=== PATIENT | female | born 1945 | race Hispanic/Latino ===

== ENCOUNTER → 2018-08-27 | Outpatient (CLI) | payer OTHER, MEDICARE | END | disposition home or self-care (01) | LOC: OIH 10:23 | PROVIDERS: ATTEND Family Medicine | DX: M47.894 Other spondylosis, thoracic region (principal) | CPT/HCPCS: 72070 ==

== ENCOUNTER → 2018-09-21 | Outpatient (CLI) | payer OTHER, MEDICARE | END | disposition home or self-care (01) | LOC: RAH 11:42 | PROVIDERS: ATTEND Family Medicine | DX: Z12.31 Encounter for screening mammogram for malignant neoplasm of breast (principal) | CPT/HCPCS: 77067 ==

== ENCOUNTER → 2020-10-10 | Outpatient (CLI) | payer OTHER, MEDICARE | END | disposition home or self-care (01) | LOC: OIH 13:05 | PROVIDERS: ATTEND Family Medicine | DX: R07.82 Intercostal pain (principal); M25.511 Pain in right shoulder | CPT/HCPCS: 71100; 73030 ==

== ENCOUNTER → 2020-10-11 | Outpatient (CLI) | payer OTHER, MEDICARE | END | disposition home or self-care (01) | LOC: RAH 08:42 | PROVIDERS: ATTEND Family Medicine | DX: Z12.31 Encounter for screening mammogram for malignant neoplasm of breast (principal); K76.0 Fatty (change of) liver, not elsewhere classified | CPT/HCPCS: 76700; 77067 ==

== ENCOUNTER 2022-11-15 09:44 | Emergency (ER) | payer OTHER, MEDICARE ==
[~2022-11-15] VITALS: Ht 154.9 cm; Wt 54.4 kg
[2022-11-15] MEDS ORDERED: DIPH,PERTUSS(ACELL),TET VAC/PF 0.5 ML VIAL IM ONE (10:00)
[2022-11-15] MEDS ORDERED: ONDANSETRON ODT 4MG TAB SL ONE (10:00)
[2022-11-15] MEDS ORDERED: MORPHINE 4 MG SYG IM ONE (10:00)
[2022-11-15] MEDS ORDERED: CYCL10TA16 PO (12:26)
[2022-11-15] MEDS ORDERED: OXYC-38 PO (12:26)
[2022-11-15] MEDS ORDERED: NAPR-1180 PO (12:26)
[2022-11-15 12:30] VITALS: BP 134/48
[2022-11-15] MEDS ORDERED: OXYCODONE/ACETAMIN 5/325MG TAB PO ONE (13:00)
== END 2022-11-15 13:10 | disposition home or self-care (01) ==
LOC: EDH 09:44
DX: S20.211A Contusion of right front wall of thorax, initial encounter (principal); S50.811A Abrasion of right forearm, initial encounter; E11.9 Type 2 diabetes mellitus without complications; Y99.8 Other external cause status; E78.00 Pure hypercholesterolemia, unspecified; I10 Essential (primary) hypertension; W06.XXXA Fall from bed, initial encounter; Y93.89 Activity, other specified; Y92.89 Other specified places as the place of occurrence of the external cause
CPT/HCPCS: 99285; 90715; 71101; 96372; 90471; J2270

== ENCOUNTER 2024-09-16 23:28 | Emergency (ER) | payer OTHER, MEDICARE ==
[~2024-09-16 23:28] MED LIST: CYCL10TA16 PO; NAPR-1180 PO; OXYC-38 PO
--- NOTE | 2024-09-17 00:06 | NUR ---
PATIENT SENT FROM [facility] DUE TO ABNORMAL LABS LOW H/H
[2024-09-17 00:27] LABS: BASOPHILS # (AUTO) 0.02 K/uL (0.00-0.20); BASOPHILS % (AUTO) 0.3 % (0.0-5.0); EOSINOPHILS # (AUTO) 0.19 K/uL (0.00-0.70); EOSINOPHILS % (AUTO) 2.9 % (0.0-8.0); HEMATOCRIT 22.3 % (36-48); IMMATURE GRANULOCYTE ABSOLUTE 0.04 K/uL (0-1); LYMPHOCYTES # (AUTO) 1.5 K/uL (1.0-4.8); LYMPHOCYTES % (AUTO) 22.2 % (21.0-51.0); MEAN CORPUSCULAR HGB CONC 33.2 g/dL (32.0-36.0); MEAN CORPUSCULAR VOLUME 90.3 fL (79-99); MONOCYTES # (AUTO) 0.5 K/uL (0.1-1.0); MONOCYTES % (AUTO) 7.1 % (3.0-13.0); NEUTROPHILS # (AUTO) 4.5 K/uL (1.8-7.7); NEUTROPHILS % (AUTO) 66.9 % (40.0-77.0); PLATELET COUNT (AUTO) 226 K/uL (130-400); RED BLOOD CELL COUNT(AUTO) 2.47 MIL/uL (4.00-5.50); RED CELL DISTRIBUTION WIDTH 14.1 % (11.0-15.5); WHITE BLOOD COUNT (AUTO) 6.7 K/uL (4.8-10.8)
[2024-09-17 00:38] LABS: CREATININE 2.1 mg/dL (0.5-1.0); POTASSIUM 5.4 mmol/L (3.5-5.1)
[2024-09-17 00:39] LABS: INR 1.06 (0.85-1.15); PROTHROMBIN TIME 11.4 SEC (9.6-11.6)
[2024-09-17 00:40] LABS: PARTIAL THROMBOPLASTIN TIME 32.8 SEC (26.3-35.5)
--- NOTE | 2024-09-17 00:41 | ERN ---
ED Note History of Present Illness Stated Complaint: ABNORMAL LABS Chief Complaint: Abnormal Labs Time Seen by MD: 23:53 Time Seen by Midlevel: 23:53 Dictation: The patient is a 79-year-old female with a history of type 2 diabetes, anemia, muscle weakness, kidney failure who presents to the emergency department after being sent from [facility] due to abnormal hemoglobin. Patient's hemoglobin at facility was 7.6. Patient does have a history of anemia last hemoglobin in September 12 was 7.5. Patient at this time denies any complaints. Patient denies any abdominal pain, nausea or vomiting, chest pain or shortness of breath, dizziness Nursing staff at [facility] reported no black stools, no nausea or vomiting. Allergies: Coded Allergies: No Known Drug Allergies (Unverified Allergy, Unknown, 11/15/22) Home Meds Active Scripts Naproxen (Naprosyn) 500 Mg Tablet, 500 MG PO BIDPC for 10 Days, #20 TAB 0 Refills Prov:FRANKY BANEGAS MD 11/15/22 Cyclobenzaprine HCl (Flexeril) 10 Mg Tab, 0.5 TAB PO TID for muscle spasm, #16 TAB 0 Refills Prov:FRANKY BANEGAS MD 11/15/22 Oxycodone HCl/Acetaminophen (Percocet 5-325 mg Tablet) 1 Each Tablet, 1 EACH PO Q6H for pain, #12 TAB 0 Refills Prov:FRANKY BANEGAS MD 11/15/22 Past Medical History Past Medical History: Anemia, Diabetes-Type II, UTI Additional Past Medical Hx: GASTRITIS, Surgical History: None Social History: Negative, Lives with family RN Note Reviewed/Agreed w/PFSH: Yes Review of System Dictation Constitutional: Negative for fever,chills, and weight loss Eyes: Negative for injury, pain,redness, and discharge ENT: Negative for injury,pain or swelling Cardiovascular: Negative for chest pain, palpitations, and edema Respiratory: Negative for shortness of breath, cough, and wheezing, Abdomen/GI: Negative for abdominal pain, nausea, vomiting, diarrhea, and constipation Back: Negative for injury and pain : Negative for injury, bleeding and discharge MS/Extremity: Negative for injury and deformity Skin: Negative for rash, and discoloration Neuro: Negative for headache, weakness, numbness, tingling, and seizure Psych: Negative for suicide ideation, homicidal ideation, and hallucinations Initial Vital Sign VS Vital Signs Date Time Temp Pulse Resp B/P (MAP) Pulse Ox O2 Delivery O2 Flow Rate FiO2 09/16/24 23:33 84 16 186/74 97 Room Air 09/17/24 02:55 0 21 Physical Exam Dictation Vital Signs reviewed General Appearance: Alert, oriented x 1, no acute distress, well developed, nourished. Head and Face: non-traumatic. Eyes: PERRL, pink conjunctivas, eyelid no trauma, anterior chamber with arcus senilis. Ears: Pinnas intact and no signs of trauma or erythema ear canals clear and no discharge TM no erythema Nose: No discharge, no bleeding. Oropharynx: Mouth normal, tongue pink. pharynx clear,no erythema, tonsils no exudates, no abscesses noted, mucous membrane moist Neck: Supple, non-tender, no thyromegaly, no masses, no JVD, no bruits Breast:Deferred Chest:No tenderness, no crepitus, no paradoxical movement, no retractions Lungs:Clear, well-ventilated, symmetric, no rales, no wheezing, no rhonchi, no stridor, good breath sounds bilaterally Heart: Regular rate, regular rhythm, no murmur, no gallops Vascular: no peripheral edema, Abdomen: Soft, positive bowel sounds, nondistended, no guarding, nontender, no rebound, no masses no hepatomegaly, no splenomegaly, no Acosta's sign, no hernias. Rectal: Deferred Genital: Deferred Neurological: Normal speech, motor function intact, sensory function intact Musculoskeletal: Neck nontender, full range of motion, back nontender, full range of motion, Extremities: nontender, full range of motion Skin: Color pink, dry, no turgor, no rash, no lacerations, no abrasions, no contusions. Lymphatic: Deferred Results (Laboratory/Radiology) Laboratory/Radiology Laboratory Tests Test 09/17/24 00:20 09/17/24 02:37 White Blood Count 6.7 K/uL (4.8-10.8) Red Blood Count 2.47 MIL/uL (4.00-5.50) L Hemoglobin 7.4 g/dL (12.0-16.0) L Hematocrit 22.3 % (36-48) L Mean Corpuscular Volume 90.3 fL (79-99) Mean Corpuscular Hemoglobin 30.0 pg (27.0-33.0) Mean Corpuscular Hemoglobin Concent 33.2 g/dL (32.0-36.0) Red Cell Distribution Width 14.1 % (11.0-15.5) Platelet Count 226 K/uL (130-400) Mean Platelet Volume 9.3 fL (7.5-10.5) Immature Granulocyte % (Auto) 0.6 % (0-1) Neutrophils (%) (Auto) 66.9 % (40.0-77.0) Lymphocytes (%) (Auto) 22.2 % (21.0-51.0) Monocytes (%) (Auto) 7.1 % (3.0-13.0) Eosinophils (%) (Auto) 2.9 % (0.0-8.0) Basophils (%) (Auto) 0.3 % (0.0-5.0) Neutrophils # (Auto) 4.5 K/uL (1.8-7.7) Lymphocytes # (Auto) 1.5 K/uL (1.0-4.8) Monocytes # (Auto) 0.5 K/uL (0.1-1.0) Eosinophils # (Auto) 0.19 K/uL (0.00-0.70) Basophils # (Auto) 0.02 K/uL (0.00-0.20) Absolute Immature Granulocyte (auto 0.04 K/uL (0-1) Nucleated Red Blood Cells 0.0 % (0.0-0.19) Prothrombin Time 11.4 SEC (9.6-11.6) Prothromb Time International Ratio 1.06 (0.85-1.15) Activated Partial Thromboplast Time 32.8 SEC (26.3-35.5) Sodium Level 136 mmol/L (136-145) Potassium Level 5.4 mmol/L (3.5-5.1) H 3.8 mmol/L (3.5-5.1) Chloride Level 102 mmol/L (101-111) Carbon Dioxide Level 25 mmol/L (21-32) Blood Urea Nitrogen 49 mg/dL (7-18) H Creatinine 2.1 mg/dL (0.5-1.0) H Glomerular Filtration Rate Calc 24 mL/min (>90) Random Glucose 118 mg/dL (70-105) H Total Calcium 8.5 mg/dL (8.5-10.1) Labs Reviewed?: Yes ED Course ED Course Orders Procedure Category Date Status Time Cbc With Differential LAB 09/17/24 Complete 00:01 Basic Metabolic Panel LAB 09/17/24 Complete 00:01 Pt And Ptt LAB 09/17/24 Complete 00:03 12 Lead Ekg Tracing- EKG 09/17/24 Logged Technical 00:54 Dextrose 50%-Water PHA 09/17/24 Complete (Dextrose 50%-Water) 01:00 Insulin Regular, PHA 09/17/24 Complete Human 3ml (Humulin R 01:00 Albuterol 0.083% PHA 09/17/24 In Process 2.5mg/3ml (Proventil 01:00 Na Zircon PHA 09/17/24 Complete Cyclosil-Lokelma 10g 01:00 0.9%Nacl 1000ml (Ns PHA 09/17/24 In Process 1000ml) 01:00 Dextrose 50%-Water PHA 09/17/24 Complete (D50w) 01:30 Potassium LAB 09/17/24 Complete 02:29 Current Medications Medications (Trade) Dose Ordered Sig/Jessica Route PRN Reason Start Time Stop Time Status Last Admin Dose Admin Albuterol Sulfate (Proventil 0.083% 2.5mg/3ml) 10 mg ONCE IH 09/17/24 01:00 10/17/24 00:59 09/17/24 01:18 Dextrose (D50w) 50 ml ONCE ONCE IV 09/17/24 01:30 09/17/24 01:31 DC 09/17/24 01:10 Dextrose (Dextrose 50%-Water) 25 gm ONCE ONCE IV 09/17/24 01:00 09/17/24 01:01 DC Insulin Human Regular (humuLIN R 100 UNIT/ML 3ML) 5 unit ONCE ONCE IV 09/17/24 01:00 09/17/24 01:01 DC 09/17/24 01:18 Sodium Chloride 1,000 ml @ 100 mls/hr Q10H IV 09/17/24 01:00 10/17/24 00:59 09/17/24 01:10 Sodium Zirconium Cyclosilicate (Lokelma 10gm Powder) 10 gm ONCE ONCE PO 09/17/24 01:00 09/17/24 01:01 DC 09/17/24 01:10 Vital Signs Date Time Temp Pulse Resp B/P (MAP) Pulse Ox O2 Delivery O2 Flow Rate FiO2 09/17/24 02:55 100 19 106/63 100 Room Air* 0 21 09/17/24 01:19 78 17 09/16/24 23:33 84 16 186/74 97 Room Air Medical Decision Making MDM The patient is a 79-year-old female with a history of type 2 diabetes, anemia, muscle weakness, kidney failure who presents to the emergency department after being sent from [facility] due to abnormal hemoglobin. Patient's hemoglobin at facility was 7.6. Patient does have a history of anemia last hemoglobin in September 12 was 7.5. Patient at this time denies any complaints. Patient denies any abdominal pain, nausea or vomiting, chest pain or shortness of breath, dizziness Nursing staff at [facility] reported no black stools, no nausea or vomiting. CBC showed no leukocytosis, mild normocytic anemia, not significantly changed from previous hemoglobin. Patient with no active bleeding, history of kidney disease. Potassium slightly elevated 5.4 patient received hypokalemia treatment and improved to 3.8. Patient continues in no distress, asymptomatic. We will be discharged back to [facility]. Case discussed with , No need for transfusion patient not symptomatic, no active bleeding. Stable vital signs. Differential diagnosis: Anemia, electrolyte imbalance, renal failure, dehydration Need for hospitalization: Patient does not meet criteria for hospitalization. There are no social concerns with this patient. DX & DISP Disposition: Discharge Departure Impression: Primary Impression: Anemia Additional Impressions: CKD (chronic kidney disease), Hyperkalemia Condition: Stable Additional Instructions: FOLLOW-UP WITH PRIMARY CARE PROVIDER IN 1 TO 2 DAYS. TAKE MEDICATIONS DIRECTED HERE IN THE EMERGENCY ROOM. OKAY TO CONTINUE HOME MEDICATIONS UNLESS OTHERWISE DISCUSSED DURING YOUR VISIT IN THE EMERGENCY ROOM TODAY. RETURN TO YOUR NEAREST EMERGENCY ROOM IF SYMPTOMS WORSEN OR IF THERE IS NO IMPROVEMENT. CALL 911 IF YOU NEED IMMEDIATE ASSISTANCE. TAKE TYLENOL [id number] NEEDED AND IF NO CONTRAINDICATIONS ARE PRESENT. INCREASE ORAL HYDRATION. A WOUND CULTURE OR URINE CULTURE WAS ORDERED HERE IN THE EMERGENCY ROOM DEPARTMENT PLEASE FOLLOW-UP WITH PRIMARY CARE PROVIDER AND ADVISE THEM TO GET REPEAT PORTS FROM OUR FACILITY. IF YOU HAD ANY LIV WRAP/SPLINTS THAT WERE APPLIED HERE, PLEASE DO NOT REMOVE THEM UNTIL YOU SEE YOUR PRIMARY CARE OR SPECIALTY. Referrals: DIDIER QUIGLEY MD (PCP) Time of Disposition: 02:59 I have reviewed the case, and I agree with, Diagnosis and Plan PANCHITO SALGUERO LINE O SCRIBE OPERATOR Sep 17, 2024 00:41
[2024-09-17] MEDS: DEXTROSE 50%-WATER 50 ML DISP.SYRIN IV ONE (01:10)
[2024-09-17] MEDS: 0.9%NACL 1000ML 1,000 ML IV SCH (01:10)
[2024-09-17] MEDS: NA ZIRCON CYCLOSIL(LOKELMA 10GM) PO ONE (01:10)
[2024-09-17] MEDS: DEXTROSE 50%-WATER 25 GM/50 ML VIAL IV ONE (01:11)
[2024-09-17] MEDS: ALBUTEROL 0.083% 2.5 MG/3 ML INH IH SCH (01:18)
[2024-09-17] MEDS: INSULIN humuLIN R 100 UNIT/ML 3ML IV ONE (01:18)
[2024-09-17 01:19] VITALS: PULSE 78; RESP 17
[2024-09-17 02:55] VITALS: BP 106/63; PULSE 100; RESP 19; O2SAT 100
--- NOTE | 2024-09-17 03:27 | NUR ---
ATTEMPTS TO CALL REPORT TO NURSING STAFF UNSUCCESSFUL, NO ANSWER AT [facility]
--- NOTE | 2024-09-17 03:27 | NUR ---
EMS CALLED FOR PATIENT TRANSPORT TO [facility]
--- NOTE | 2024-09-17 06:46 | EKG ---
[facility] Test Date: 2024-09-17 Test Time: 02:45:07 Pat Name: DARRYL STOREY Department: ED Room: Gender: F Milling Supervisor: [id number] : [phone] Requested By: PANCHITO SALGUERO Order Number: [id number] Reading MD: Nam Cox Measurements Intervals [place] Rate: 117 P: 26 NC: 157 QRS: -30 QRSD: 71 T: 34 QT: 330 QTc: 461 Interpretive Statements Sinus tachycardia Ventricular premature complex Left axis deviation No previous ECG available for comparison Electronically Signed On 09-17-2024 16:15:34 BOOKMOBILE LIBRARIAN by Nam Cox Please click the below link to view image of tracing.
== END 2024-09-17 03:58 ==
LOC: EDH 23:28
DX: E11.22 Type 2 diabetes mellitus with diabetic chronic kidney disease (principal); D63.1 Anemia in chronic kidney disease; N18.9 Chronic kidney disease, unspecified; E87.5 Hyperkalemia; Z79.899 Other long term (current) drug therapy
CPT/HCPCS: 99284; 80048; 85025; 85610; 85730; 82948; 36415; 84132; 96374; 96375; 93005; 94640; J1815; J7030; J7070

== ENCOUNTER 2024-12-20 15:02 | Emergency (ER) | payer OTHER, MEDICARE ==
[~2024-12-20] VITALS: Ht 157.5 cm; Wt 68.9 kg
[2024-12-20] MEDS ORDERED: AMOX-426 PO (15:36)
--- NOTE | 2024-12-20 15:37 | ERN ---
ED Note History of Present Illness Stated Complaint: RIGHT EAR DISCHARGE Chief Complaint: Earache Time Seen by MD: 15:06 Time Seen by Midlevel: 15:06 Dictation: The Patient is a 79-year-old female with a history of diabetes who presents to the emergency department with complaints of right ear pain, drainage onset two weeks ago. Family member denies any fevers. No other complaints reported. Allergies: Coded Allergies: No Known Drug Allergies (Unverified Allergy, Unknown, 11/15/22) Home Meds Active Scripts Amoxicillin/Potassium Clav (Augmentin 500-125 Tablet) 500 Mg-125 Mg Tablet, 1 TAB PO BID for 10 Days, #20 TAB 0 Refills Prov:PANCHITO SALGUERO AIRCRAFT ENGINEER 12/20/24 Naproxen (Naprosyn) 500 Mg Tablet, 500 MG PO BIDPC for 10 Days, #20 TAB 0 Refills Prov:FRANKY BANEGAS MD 11/15/22 Cyclobenzaprine HCl (Flexeril) 10 Mg Tab, 0.5 TAB PO TID for muscle spasm, #16 TAB 0 Refills Prov:FRANKY BANEGAS MD 11/15/22 Oxycodone HCl/Acetaminophen (Percocet 5-325 mg Tablet) 1 Each Tablet, 1 EACH PO Q6H for pain, #12 TAB 0 Refills Prov:FRANKY BANEGAS MD 11/15/22 Past Medical History Past Medical History: Anemia, Diabetes-Type II, UTI Additional Past Medical Hx: GASTRITIS, Surgical History: None Social History: Negative, Lives with family RN Note Reviewed/Agreed w/PFSH: Yes Review of System Dictation Constitutional: Negative for fever,chills, and weight loss Eyes: Negative for injury, pain,redness, and discharge ENT: Negative for injury,pain or swelling positive for right ear pain, discharge Cardiovascular: Negative for chest pain, palpitations, and edema Respiratory: Negative for shortness of breath, cough, and wheezing, Abdomen/GI: Negative for abdominal pain, nausea, vomiting, diarrhea, and constipation Back: Negative for injury and pain : Negative for injury, bleeding and discharge MS/Extremity: Negative for injury and deformity Skin: Negative for rash, and discoloration Neuro: Negative for headache, weakness, numbness, tingling, and seizure Psych: Negative for suicide ideation, homicidal ideation, and hallucinations Initial Vital Sign VS Vital Signs Date Time Temp Pulse Resp B/P (MAP) Pulse Ox O2 Delivery O2 Flow Rate FiO2 12/20/24 15:05 98.2 89 16 143/54 98 Room Air 0 12/20/24 18:10 21 Physical Exam Dictation Vital Signs reviewed General Appearance: Alert, oriented x 3, no acute distress, well developed, no urished. Head and Face: non-traumatic. Eyes: PERRL, pink conjunctivas, eyelid no trauma, anterior chamber with arcus senilis. Ears: Pinnas intact and no signs of trauma or erythema ear canals clear , right ear canal with mild purulent drainage, ruptured tympanic membrane Nose: No discharge, no bleeding. Oropharynx: Mouth normal, tongue pink. pharynx clear,no erythema, tonsils no exudates, no abscesses noted, mucous membrane moist Neck: Supple, non-tender, no thyromegaly, no masses, no JVD, no bruits Breast:Deferred Chest:No tenderness, no crepitus, no paradoxical movement, no retractions Lungs:Clear, well-ventilated, symmetric, no rales, no wheezing, no rhonchi, no stridor, good breath sounds bilaterally Heart: Regular rate, regular rhythm, no murmur, no gallops Vascular: no peripheral edema, Abdomen: Soft, positive bowel sounds, nondistended, no guarding, nontender, no rebound, no masses no hepatomegaly, no splenomegaly, no Acosta's sign, no hernias. Rectal: Deferred Genital: Deferred Neurological: Normal speech, motor function intact, sensory function intact Musculoskeletal: Neck nontender, full range of motion, back nontender, full range of motion, Extremities: nontender, full range of motion Skin: Color pink, dry, no turgor, no rash, no lacerations, no abrasions, no contusions. Lymphatic: Deferred Results (Laboratory/Radiology) Labs Reviewed?: Yes ED Course ED Course Orders Procedure Category Date Status Time Ceftriaxone 1g Vial PHA 12/20/24 Complete (Rocephine 1g Inj) 15:30 Current Medications Medications (Trade) Dose Ordered Sig/Jessica Route PRN Reason Start Time Stop Time Status Last Admin Dose Admin Ceftriaxone Sodium (ROCEphine 1G INJ) 1 gm ONCE ONCE IM 12/20/24 15:30 12/20/24 15:39 DC 12/20/24 18:15 Vital Signs Date Time Temp Pulse Resp B/P (MAP) Pulse Ox O2 Delivery O2 Flow Rate FiO2 12/20/24 18:10 98.4 89 17 160/94 99 Room Air* 0 21 12/20/24 15:05 98.2 89 16 143/54 98 Room Air 0 Medical Decision Making MDM The Patient is a 79-year-old female with a history of diabetes who presents to the emergency department with complaints of right ear pain, drainage onset two weeks ago. Family member denies any fevers. No other complaints reported. Patient with acute otitis media. On physical examination patient has ruptured tympanic membrane in purulent drainage. We will be treated with the antibiotics and instructed to follow up with PCP. Patient in no acute distress, nontoxic appearance. Stable vital signs. Differential diagnosis: Otitis externa, otitis media, ruptured tympanic membrane Need for hospitalization: Patient does not meet criteria for hospitalization. There are no social concerns with this patient. DX & DISP Disposition: Discharge Departure Impression: Primary Impression: Right otitis media with spontaneous rupture of eardrum Condition: Stable Scripts Amoxicillin/Potassium Clav (Augmentin 500-125 Tablet) 500 Mg-125 Mg Tablet 1 TAB PO BID for 10 Days, #20 TAB 0 Refills Prov: PANCHITO SALGUERO AIRCRAFT ENGINEER 12/20/24 Additional Instructions: Please take your medications as prescribed. Avoid getting any water in the ear. Avoid any pools or lakes. If symptoms do not improve or worsen please follow up with your primary doctor return to ER. Please follow up with your primary doctor in 1-2 days. return to ER. FOLLOW-UP WITH PRIMARY CARE PROVIDER IN 1 TO 2 DAYS. TAKE MEDICATIONS DIRECTED HERE IN THE EMERGENCY ROOM. OKAY TO CONTINUE HOME MEDICATIONS UNLESS OTHERWISE DISCUSSED DURING YOUR VISIT IN THE EMERGENCY ROOM TODAY. RETURN TO YOUR NEAREST EMERGENCY ROOM IF SYMPTOMS WORSEN OR IF THERE IS NO IMPROVEMENT. CALL 911 IF YOU NEED IMMEDIATE ASSISTANCE. TAKE TYLENOL OR MOTRIN [id number] NEEDED AND IF NO CONTRAINDICATIONS ARE PRESENT. INCREASE ORAL HYDRATION. A WOUND CULTURE OR URINE CULTURE WAS ORDERED HERE IN THE EMERGENCY ROOM DEPARTMENT PLEASE FOLLOW-UP WITH PRIMARY CARE PROVIDER AND ADVISE THEM TO GET REPEAT PORTS FROM OUR FACILITY. IF YOU HAD ANY LIV WRAP/SPLINTS THAT WERE APPLIED HERE, PLEASE DO NOT REMOVE THEM UNTIL YOU SEE YOUR PRIMARY CARE OR SPECIALTY. Referrals: DIDIER QUIGLEY MD (PCP) Time of Disposition: 15:36 I have reviewed the case, and I agree with, Diagnosis and Plan I performed the substantive portion of the visit. I have reviewed and personally made and approve the management plan that is documented in the notes by myself or the ELADIO. I acknowledge full responsibility for the patient's management plan. PANCHITO SALGUERO Dec 20, 2024 15:37 CHERRI LEMONS MD Dec 22, 2024 16:49
[2024-12-20 18:10] VITALS: BP 160/94; PULSE 89; RESP 17; TEMP 98.4; O2SAT 99
[2024-12-20] MEDS: cefTRIAXone 1G VIAL IM ONE (18:15)
== END 2024-12-20 18:26 | disposition home or self-care (01) ==
LOC: EDH 15:02
DX: H66.91 Otitis media, unspecified, right ear (principal); E11.9 Type 2 diabetes mellitus without complications
CPT/HCPCS: 99284; 96372; J0696